=== PATIENT | female | born 1990 | race Two or more races ===

== ENCOUNTER 2017-05-30 18:01 | Emergency (ER) | payer OTHER ==
[2017-05-30 18:09] VITALS: BP 112/75; PULSE 77; TEMP 98; BMI 22.8
[2017-05-30] MEDS ORDERED: ACETAMINOPHEN 325 MG TABLET (FP) PO ONE (19:52)
[2017-05-30] MEDS ORDERED: ALBUTEROL SO4 2.5/IPRATROPIUM 0.5 INH SOL 3 ML VIAL.NEB. NEB ONE ×2 (19:52→19:55)
--- NOTE | 2017-05-30 19:52 | PDOC ---
History of Present Illness - General Chief Complaint: Cold Symptoms Stated Complaint: CHEST PAIN Time Seen by Provider: 05/30/17 19:14 History Source: Patient Exam Limitations: No Limitations - History of Present Illness Initial Comments: 05/30/17 21:08 Patient is a 26-year-old female with no past medical history who presents to the emergency department today complaining of chest pain and sore throat. Patient states that her symptoms began 3 days ago. She states that her throat has become very sore and she lost her voice. She states that her chest hurts more when she coughs or takes a deep breath. Admits to subjective fevers. Denies shortness of breath, ear pain, runny nose, visual changes, palpitations, nausea, vomiting and diarrhea. Past History - Travel Traveled outside of the country in the last 30 days: No Close contact w/someone who was outside of country & ill: No - Past Medical History Allergies/Adverse Reactions: Allergies Allergy/AdvReac Type Severity Reaction Status Date / Time ibuprofen [From Motrin] Allergy Rash Verified 05/30/17 18:05 Home Medications: Ambulatory Orders Albuterol Sulfate Inhaler - [Ventolin HFA Inhaler -] 1 - 2 inh PO Q4H #1 inhaler 05/30/17 COPD: No DVT: No - Immunization History Immunization Up to Date: Yes - Suicide/Smoking/Psychosocial Hx Smoking History: Never smoked Have you smoked in the past 12 months: No Information on smoking cessation initiated: No Hx Alcohol Use: No Drug/Substance Use Hx: No Substance Use Type: None Review of Systems - Review of Systems Able to Perform ROS?: Yes Comments:: 05/30/17 21:10 CONSTITUTIONAL: Present: fever Absent: chills, diaphoresis, generalized weakness, malaise, loss of appetite HEENT: Present:throat pain, loss of voice Absent: rhinorrhea, nasal congestion, throat swelling, difficulty swallowing, mouth swelling, ear pain, eye pain, visual Changes CARDIOVASCULAR: Present: chest pain, made worse by cough or deep breaths Absent: loss of consciousness, palpitations, irregular heart rate, peripheral edema RESPIRATORY: Present: cough. Absent: shortness of breath, dyspnea with exertion, orthopnea, wheezing, stridor, hemoptysis GASTROINTESTINAL: Absent: abdominal pain, abdominal distension, nausea, vomiting, diarrhea, constipation, melena, hematochezia GENITOURINARY: Absent: dysuria, frequency, urgency, hesitancy, hematuria, flank pain, genital pain MUSCULOSKELETAL: Absent: myalgia, arthralgia, joint swelling SKIN: Absent: rash, itching, pallor HEMATOLOGIC/IMMUNOLOGIC: Absent: easy bleeding, easy bruising, lymphadenopathy, frequent infections ENDOCRINE: Absent: unexplained weight gain, unexplained weight loss, heat intolerance, cold intolerance NEUROLOGIC: Absent: headache, focal weakness or paresthesias, dizziness, unsteady gait, seizure, mental status changes, bladder or bowel incontinence PSYCHIATRIC: Absent: anxiety, depression, suicidal or homicidal ideation, hallucinations. Is the patient limited Kosovan proficient: No *Physical Exam - Vital Signs Last Vital Signs Temp Pulse Resp BP Pulse Ox 98.0 F 77 16 112/75 97 05/30/17 18:06 05/30/17 18:06 05/30/17 18:06 05/30/17 18:06 05/30/17 18:06 - Physical Exam Comments: 05/30/17 23:11 GENERAL: Well developed, well nourished. Awake and alert. No acute distress. HEENT: Normocephalic, atraumatic. PERRLA, EOMI. No conjunctival pallor. Sclera are non- icteric. Moist mucous membranes. Oropharynx is clear. TM's pearly manzano with good cones of light and landmarks b/l. Voice is diminished. NECK: Supple. Full ROM. No JVD. Carotid pulses 2+ and symmetric, without bruits. No thyromegaly. No lymphadenopathy. CARDIOVASCULAR: Regular rate and rhythm. No murmurs, rubs, or gallops. Distal pulses are 2+ and symmetric. PULMONARY: No evidence of respiratory distress. Lungs clear to auscultation bilaterally. No wheezing, rales or rhonchi. ABDOMINAL: Soft. Non-tender. Non-distended. No rebound or guarding. No organomegaly. Normoactive bowel sounds. MUSCULOSKELETAL Normal range of motion at all joints. No bony deformities or tenderness. No CVA tenderness. EXTREMITIES: No cyanosis. No clubbing. No edema. No calf tenderness. SKIN: Warm and dry. Normal capillary refill. No rashes. No jaundice. NEUROLOGICAL: Alert, awake, appropriate. Cranial nerves 2-12 intact. No deficits to light touch and temperature in face, upper extremities and lower extremities. No motor deficits in the in face, upper extremities and lower extremities. Normoreflexic in the upper and lower extremities. Normal speech. Toes are down- going bilaterally. Gait is normal without ataxia. PSYCHIATRIC: Cooperative. Good eye contact. Appropriate mood and affect. Medical Decision Making - Medical Decision Making 05/30/17 20:49 Patient is a 26-year-old female with no past medical history who presents to the emergency department today with sore throat, pleuritic chest pain, and laryngitis for 3 days. Most likely a viral illness at this time. Pt. vital signs are stable, afebrile. Will rule out strep and influenza at this time. We' ll give Motrin and albuterol for symptomatically treatment. EKG was obtained in triage. Shows a rate of 81 bpm normal sinus rhythm, normal intervals, incomplete right bundle branch block. No acute ST-T wave changes. 05/30/17 21:54 Strep and influenza testing is negative at this time. Pt. is feeling better after duoneb and motrin. Will d/c home at this time with instructions to rest her voice and drink plenty of fluids. Given return precautions for her chest pain. *DC/Admit/Observation/Transfer Diagnosis at time of Disposition: Laryngitis - Discharge Dispostion Disposition: HOME Condition at time of disposition: Improved Admit: No - Prescriptions Prescriptions: Albuterol Sulfate Inhaler - [Ventolin HFA Inhaler -] 1 - 2 inh PO Q4H #1 inhaler - Referrals Referrals: Myesha Taveras MD [Primary Care Provider] - - Patient Instructions Printed Discharge Instructions: DI for Laryngitis Additional Instructions: You have laryngitis. Your strep testing and flu testing were negative today. Her EKG was normal. Please rest your voice. You may use throat lozenges to help with the symptoms. Warm see may also help. Please follow-up with your primary care doctor on Thursday. You may take tylenol 650 every 4 hours as needed for pain not to exceed 4,000mg a day. Return to the emergency department if you have trouble breathing, feel like her throat is swelling, have fevers or any changes in your symptoms - Post Discharge Activity Forms/Work/School Notes: Back to Work
[2017-05-30] MEDS ORDERED: ACETAMINOPHEN 325 MG TABLET (FP) ONE (19:55)
--- NOTE | 2017-06-04 12:58 | EKG ---
Test Reason : Blood Pressure : / mmHG Vent. Rate : 081 BPM Atrial Rate : 081 BPM P-R Int : 178 ms QRS Dur : 108 ms QT Int : 378 ms P-R-T Axes : 075 038 042 degrees QTc Int : 439 ms NORMAL SINUS RHYTHM INCOMPLETE RIGHT BUNDLE BRANCH BLOCK NONSPECIFIC T WAVE ABNORMALITY ABNORMAL ECG NO PREVIOUS ECGS AVAILABLE Confirmed by JOÃO SUAREZ MD ([id number]) on 06/04/2017 12:58:23 PM Referred By: Confirmed By:JOÃO SUAREZ MD
== END 2017-05-30 21:06 | disposition home or self-care (01) ==
LOC: JERFT 18:01 → JER 18:01 → JERFT 21:06
PROC: 3E0F7GC Introduction of Other Therapeutic Substance into Respiratory Tract, Via Natural or Artificial Opening (ICD-10-PCS; principal; 2017-05-30)
DX: J04.0 Acute laryngitis (principal)
CPT/HCPCS: 87070; 87430; 93005; 93010; 94640; 99281-25

== ENCOUNTER 2022-07-10 04:33 | Emergency (ER) | payer OTHER ==
[2022-07-10 04:54] VITALS: BP 122/85; PULSE 91; RESP 20; TEMP 98.4; BMI 26.2
[2022-07-10 06:50] LABS: THROAT:GRP A STREP NOT DETECTED (NOTDETECTED)
== END 2022-07-10 07:43 | disposition home or self-care (01) ==
LOC: JER 04:33
DX: J04.0 Acute laryngitis (principal)
CPT/HCPCS: 0241U-QW; 87651; 99283-25